=== PATIENT | male | born 1955 | race Caucasian/White ===

== ENCOUNTER 2021-10-06 08:10 | Emergency (ER) | payer BC, OTHER, MEDICARE ==
[~2021-10-06] VITALS: Ht 190.5 cm; Wt 94.5 kg
[2021-10-06] MEDS ORDERED: ECOT81TA5 PO (08:17)
[2021-10-06] MEDS ORDERED: LISI5TAB11 (08:17)
[2021-10-06] MEDS ORDERED: ATOR1TAB19 (08:17)
[2021-10-06] MEDS ORDERED: NS 1,000 ML IV ONE ×2 (08:40→10:55)
[2021-10-06] MEDS ORDERED: METOPROLOL TART 25 MG TABLET PO ONE (08:45)
[2021-10-06] MEDS: METOPROLOL 5 MG/5 ML VIAL IV SCH ×3 (09:12→09:45)
[2021-10-06 09:16] LABS: BASO % 0.6 % (0.0-1.0); EOS # 0.4 10^3/uL (0.0-0.5); HEMOGLOBIN 15.9 g/dl (13.5-17.5); LYMPH # 1.4 10^3/uL (1.5-5.0); LYMPH % 19.8 % (24.0-44.0); MEAN CORPUSCULAR HEMOGLOBIN 29.6 pg (27.0-33.0); MEAN CORPUSCULAR HGB CONC 33.8 g/dl (32.0-36.5); MEAN CORPUSCULAR VOLUME 87.5 fl (80.0-96.0); MONO # 0.7 10^3/uL (0.0-0.8); MONO % 9.1 % (2.0-8.0); NEUTROPHILS # 4.7 10^3/uL (1.5-8.5); NEUTROPHILS % 65.1 % (36.0-66.0); PLATELET COUNT, AUTOMATED 198 10^3/uL (150-450); RED BLOOD COUNT 5.37 10^6/uL (4.30-6.10); WHITE BLOOD COUNT 7.3 10^3/uL (4.0-10.0)
[2021-10-06 09:45] VITALS: BP 125/75
[2021-10-06 09:47] LABS: BLOOD UREA NITROGEN 22 MG/DL (7-18); CALCIUM LEVEL 9.2 MG/DL (8.8-10.2); CARBON DIOXIDE LEVEL 23 MEQ/L (21-32); CHLORIDE LEVEL 112 MEQ/L (98-107); CREATININE FOR GFR 1.11 MG/DL (0.70-1.30); FREE T4 0.87 NG/DL (0.76-1.46); GLOMERULAR FILTRATION RATE > 60.0 (>49); GLUCOSE, FASTING 119 MG/DL (70-100); MAGNESIUM LEVEL 2.2 MG/DL (1.8-2.4); POTASSIUM SERUM 4.6 MEQ/L (3.5-5.1); SODIUM LEVEL 141 MEQ/L (136-145)
[2021-10-06] MEDS ORDERED: NS 1,000 ML IV SCH (11:40)
[2021-10-06] MEDS ORDERED: propofoL 200 MG/20 ML VIAL IV.PROC PRN (11:40)
[2021-10-06 14:24] VITALS: BP 106/72
== END 2021-10-06 14:37 | disposition home or self-care (01) ==
LOC: M ED 08:10
DX: I48.91 Unspecified atrial fibrillation (principal); F10.10 Alcohol abuse, uncomplicated; I10 Essential (primary) hypertension; E78.5 Hyperlipidemia, unspecified; I25.2 Old myocardial infarction; Z79.811 Long term (current) use of aromatase inhibitors; Z79.899 Other long term (current) drug therapy